=== PATIENT | female | born 1955 | race Caucasian/White ===

== ENCOUNTER 2018-01-11 14:48 | Outpatient (CLI) | payer OTHER ==
--- NOTE | 2018-01-11 17:47 | BD ---
BONE DENSITOMETRY USING DEXA 01/11/18 HISTORY: Postmenopausal screening for osteoporosis. Lumbar Spine: BMD (g/cm2) L1 0.854 T-Score: -1.2 Z-Score: 0.3 L2 0.916 T-Score: -1.0 Z-Score: 0.6 L3 0.976 T-Score: -1.0 Z-Score: 0.8 L4 0.887 T-Score: -1.6 Z-Score: 0.2 L1-L4 0.909 T-Score: -1.3 Z-Score: 0.4 Femoral Neck: 0.748 T-Score: -0.9 Z-Score: 0.5 Total Femur: 0.961 T-Score: 0.2 Z-Score: 1.3 The ten year fracture risk for major osteoporotic fracture is 15% and for hip fracture is 0.5%. Impression: Osteopenia. POS: GAETANO
== END 2018-01-11 14:49 | disposition home or self-care (01) ==
LOC: BICMAMMO 14:48
PROVIDERS: ATTEND Obstetrics & Gynecology
DX: Z12.31 Encounter for screening mammogram for malignant neoplasm of breast (principal); M85.88 Other specified disorders of bone density and structure, other site; Z80.3 Family history of malignant neoplasm of breast
CPT/HCPCS: 77063; 77067; 77080